=== PATIENT | male | born 1970 | race Hispanic/Latino ===

== ENCOUNTER 2022-12-08 11:37 | Inpatient (IN) | payer SELFPAY ==
[~2022-12-08] VITALS: Ht 177.8 cm; Wt 95.3 kg
[2022-12-08 12:54] LABS: BASOPHILS # (AUTO) 0.1 (0.0-0.1); BASOPHILS % 0.7 % (0.0-1.0); EOSINOPHILS # (AUTO) 0.2 (0.0-0.4); EOSINOPHILS % 1.6 % (0.0-6.0); HEMATOCRIT 27.7 % (38.2-49.6); HEMOGLOBIN 8.8 g/dL (14.0-18.0); LYMPHOCYTES # (AUTO) 1.1 (1.0-3.2); LYMPHOCYTES % 9.1 % (18.0-39.1); MEAN CORPUSCULAR HEMOGLOBIN 27.8 pg (28-32); MEAN CORPUSCULAR HGB CONC 31.8 g/dL (31-35); MEAN CORPUSCULAR VOLUME 87.7 fL (81-99); MONOCYTES # (AUTO) 0.8 (0.2-0.8); MONOCYTES % 6.4 % (4.4-11.3); NEUTROPHILS % 81.6 % (38.7-80.0); PLATELET COUNT 402 x10e3/uL (140-360); RED BLOOD COUNT 3.16 x10e6/uL (4.3-5.7)
[2022-12-08 13:18] LABS: ALBUMIN 2.2 g/dL (3.5-5.0); ALBUMIN/GLOBULIN RATIO 0.4 (0.8-2.0); ANION GAP 11.4 mmol/L (8-16); CALCIUM 8.4 mg/dL (8.4-10.2); CREATININE, SERUM 2.66 mg/dL (0.72-1.25); POTASSIUM 5.4 mmol/L (3.5-5.1)
[2022-12-08] MEDS ORDERED: CALCIUM GLUC 1 G/50 ML NACL 50 ML IV ONE (13:30)
[2022-12-08] MEDS ORDERED: ALBUTEROL SULF 0.083% NEB SOLN 3 ML NEB NEB STA ×2 (13:30→15:23)
[2022-12-08] MEDS ORDERED: INSULIN REGULAR, HUMAN 100 UNIT/1 ML IV ONE (13:30)
[2022-12-08] MEDS ORDERED: SODIUM CHLORIDE 0.9% 1000ML 1,000 ML IV ONE (13:30)
[2022-12-08] MEDS ORDERED: SODIUM BICARBONATE 8.4% INJ 50 ML SYR IV STA (13:30)
[2022-12-08] MEDS ORDERED: FUROSEMIDE INJ 10 MG/ML 2 ML VIAL IV ONE (13:45)
[2022-12-08] MEDS ORDERED: SODIUM CHLORIDE FLUSH 10 ML SYR INJ PRN (13:45)
[2022-12-08] MEDS ORDERED: DEXTROSE 50% SYRINGE 50 ML IV PRN (13:45)
[2022-12-08] MEDS ORDERED: ONDANSETRON HCL INJ 2MG/ML 2ML 2 MG/ML VIAL IV PRN ×2 (13:45→22:30)
[2022-12-08 13:50] LABS: CLARITY,URINE SL CLOUDY (CLEAR); COLOR,URINE YELLOW (YELLOW); KETONES,URINE NEGATIVE (NEGATIVE); LEUKOCYTE ESTERASE ,URINE NEGATIVE (NEGATIVE); NITRITE,URINE NEGATIVE (NEGATIVE); PROTEIN,URINE DIPSTICK >=300 (NEGATIVE); URINE UROBILINOGEN 0.2 mg/dL (0.2 - 1)
[2022-12-08] MEDS ORDERED: SOD POLYSTYRENE SULFONATE SUSP 15 GM/60 ML BTL PO ONE (14:00)
[2022-12-08 14:01] LABS: RBC,URINE 0-5 /HPF (0-5); WBC,URINE (MAN) 0-5 /HPF (0-5)
[2022-12-08 14:17] LABS: INR 1.02; PROTHROMBIN TIME 13.9 seconds (11.9-14.5)
[2022-12-08 14:30] VITALS: PULSE 95; RESP 16; O2SAT 98
[2022-12-08 15:32] VITALS: PULSE 84; RESP 16; O2SAT 98
[2022-12-08] MEDS: DEXTROSE 5%/0.45% SOD CHL 1,000 ML IV SCH (17:02)
[2022-12-08] MEDS: INSULIN REGULAR, HUMAN 100 UNIT/1 ML SQ SCH ×2 (17:04→21:08)
[2022-12-08 17:56] LABS: CREATININE,URINE RANDOM 33.82 mg/dL (63-166)
[2022-12-08 20:35] VITALS: PULSE 98; RESP 18; O2SAT 97
[2022-12-08] MEDS ORDERED: HYDRALAZINE HCL 20 MG/ML VIAL IV PRN ×2 (21:15→22:30)
[2022-12-08] MEDS ORDERED: HYDRALAZINE HCL 20 MG/ML VIAL ONE (21:18)
[2022-12-08] MEDS ORDERED: DIPHENHYDRAMINE HCL INJ 50 MG/ML VIAL IV PRN (22:30)
[2022-12-08] MEDS ORDERED: DOCUSATE SODIUM 100 MG CAP PO PRN (22:30)
[2022-12-08] MEDS ORDERED: HYDROCODONE/APAP 5MG-325MG TAB PO PRN (22:30)
[2022-12-08] MEDS ORDERED: METOPROLOL TARTRATE INJ 1 MG/ML VIAL IV PRN (22:30)
[2022-12-08] MEDS ORDERED: IPRATROPIUM BROMIDE 0.02% 2.5 ML NEB NEB PRN (22:30)
[2022-12-08] MEDS ORDERED: ALBUTEROL SULF 0.083% NEB SOLN 3 ML NEB NEB PRN (22:30)
[2022-12-08 22:49] VITALS: TEMP 98.2
[2022-12-09] VITALS (11 sets, daily range): BP systolic 112–161; BP diastolic 65–99; PULSE 87–103; RESP 17–20; TEMP 97–98.2; O2SAT 97–100
[2022-12-09 05:53] LABS: BASOPHILS # (AUTO) 0.1 (0.0-0.1); EOSINOPHILS # (AUTO) 0.3 (0.0-0.4); EOSINOPHILS % 2.6 % (0.0-6.0); HEMATOCRIT 25.9 % (38.2-49.6); HEMOGLOBIN 7.9 g/dL (14.0-18.0); LYMPHOCYTES # (AUTO) 1.5 (1.0-3.2); LYMPHOCYTES % 15.3 % (18.0-39.1); MEAN CORPUSCULAR HEMOGLOBIN 27.6 pg (28-32); MEAN CORPUSCULAR HGB CONC 30.5 g/dL (31-35); MEAN CORPUSCULAR VOLUME 90.6 fL (81-99); MONOCYTES # (AUTO) 0.8 (0.2-0.8); MONOCYTES % 8.3 % (4.4-11.3); NEUTROPHILS # (AUTO) 7.1 (2.1-6.9); NEUTROPHILS % 72.3 % (38.7-80.0); PLATELET COUNT 371 x10e3/uL (140-360); RED BLOOD COUNT 2.86 x10e6/uL (4.3-5.7)
[2022-12-09 06:16] LABS: ALBUMIN 1.8 g/dL (3.5-5.0); ALBUMIN/GLOBULIN RATIO 0.4 (0.8-2.0); ANION GAP 12.9 mmol/L (8-16); CALCIUM 8.1 mg/dL (8.4-10.2); CREATININE, SERUM 2.29 mg/dL (0.72-1.25); POTASSIUM 3.9 mmol/L (3.5-5.1)
[2022-12-09] MEDS: DEXTROSE 5%/0.45% SOD CHL 1,000 ML IV SCH ×2 (06:30→17:12)
[2022-12-09 06:49] LABS: MAGNESIUM 1.9 MG/DL (1.3-2.1); PHOSPHORUS 4.6 MG/DL (2.3-4.7)
[2022-12-09] MEDS: INSULIN REGULAR, HUMAN 100 UNIT/1 ML SQ SCH ×4 (07:30→19:42)
[2022-12-09] MEDS: HYDROCODONE/APAP 5MG-325MG TAB PO PRN (12:40)
[2022-12-09] MEDS ORDERED: NAPROXEN 250 MG TAB PO SCH (17:00)
[2022-12-10] VITALS (10 sets, daily range): BP systolic 126–184; BP diastolic 76–98; PULSE 81–101; RESP 18–20; TEMP 97.9–98.1; O2SAT 96–100
[2022-12-10] MEDS: DEXTROSE 5%/0.45% SOD CHL 1,000 ML IV SCH (03:42)
[2022-12-10 05:55] LABS: BASOPHILS # (AUTO) 0.1 (0.0-0.1); BASOPHILS % 0.8 % (0.0-1.0); EOSINOPHILS # (AUTO) 0.3 (0.0-0.4); EOSINOPHILS % 2.8 % (0.0-6.0); HEMATOCRIT 27.5 % (38.2-49.6); HEMOGLOBIN 8.2 g/dL (14.0-18.0); LYMPHOCYTES # (AUTO) 1.6 (1.0-3.2); LYMPHOCYTES % 13.5 % (18.0-39.1); MEAN CORPUSCULAR HEMOGLOBIN 27.2 pg (28-32); MEAN CORPUSCULAR HGB CONC 29.8 g/dL (31-35); MEAN CORPUSCULAR VOLUME 91.1 fL (81-99); MONOCYTES % 8.4 % (4.4-11.3); NEUTROPHILS # (AUTO) 8.8 (2.1-6.9); PLATELET COUNT 391 x10e3/uL (140-360); RED BLOOD COUNT 3.02 x10e6/uL (4.3-5.7)
[2022-12-10 06:20] LABS: ALBUMIN 1.9 g/dL (3.5-5.0); ALBUMIN/GLOBULIN RATIO 0.4 (0.8-2.0); ANION GAP 11.3 mmol/L (8-16); CALCIUM 8.5 mg/dL (8.4-10.2); CREATININE, SERUM 1.95 mg/dL (0.72-1.25); POTASSIUM 4.3 mmol/L (3.5-5.1)
[2022-12-10] MEDS: INSULIN REGULAR, HUMAN 100 UNIT/1 ML SQ SCH ×4 (08:00→21:02)
[2022-12-10] MEDS ORDERED: ONDANSETRON HCL 4 MG ORAL DISINTEGRATING TAB PO PRN (13:30)
[2022-12-10] MEDS: HYDROCODONE/APAP 5MG-325MG TAB PO PRN ×2 (15:55→21:22)
[2022-12-10] MEDS: ZOLPIDEM TARTRATE 5 MG TAB PO PRN (21:22)
[2022-12-11] VITALS (10 sets, daily range): BP systolic 108–176; BP diastolic 69–92; PULSE 83–100; RESP 16–21; TEMP 97.9–98.6; O2SAT 96–98
[2022-12-11 05:36] LABS: BASOPHILS # (AUTO) 0.1 (0.0-0.1); BASOPHILS % 1.1 % (0.0-1.0); EOSINOPHILS # (AUTO) 0.3 (0.0-0.4); HEMATOCRIT 29.7 % (38.2-49.6); HEMOGLOBIN 8.8 g/dL (14.0-18.0); LYMPHOCYTES # (AUTO) 1.6 (1.0-3.2); LYMPHOCYTES % 19.7 % (18.0-39.1); MEAN CORPUSCULAR HEMOGLOBIN 27.2 pg (28-32); MEAN CORPUSCULAR HGB CONC 29.6 g/dL (31-35); MONOCYTES # (AUTO) 0.9 (0.2-0.8); MONOCYTES % 10.3 % (4.4-11.3); NEUTROPHILS # (AUTO) 5.4 (2.1-6.9); NEUTROPHILS % 65.3 % (38.7-80.0); PLATELET COUNT 356 x10e3/uL (140-360); RED BLOOD COUNT 3.23 x10e6/uL (4.3-5.7); RED CELL DISTRIBUTION WIDTH 11.9 % (11.7-14.4)
[2022-12-11 05:59] LABS: ANION GAP 13.3 mmol/L (8-16); CALCIUM 8.5 mg/dL (8.4-10.2); CREATININE, SERUM 1.97 mg/dL (0.72-1.25); POTASSIUM 4.3 mmol/L (3.5-5.1)
[2022-12-11] MEDS: INSULIN REGULAR, HUMAN 100 UNIT/1 ML SQ SCH ×4 (08:33→20:41)
[2022-12-11] MEDS: FUROSEMIDE INJ 10 MG/ML 4 ML VIAL IV SCH (09:31)
[2022-12-11] MEDS: CARVEDILOL 12.5 MG TAB PO SCH ×2 (09:31→18:21)
[2022-12-11] MEDS: AMLODIPINE BESYLATE 10 MG TAB PO SCH (09:32)
[2022-12-11] MEDS: ZOLPIDEM TARTRATE 5 MG TAB PO PRN (20:32)
[2022-12-11] MEDS: HYDROCODONE/APAP 5MG-325MG TAB PO PRN (20:32)
[2022-12-12] VITALS (9 sets, daily range): BP systolic 101–154; BP diastolic 58–93; PULSE 79–99; RESP 16–21; TEMP 97.8–98.3; O2SAT 95–100
[2022-12-12 05:44] LABS: BASOPHILS # (AUTO) 0.1 (0.0-0.1); BASOPHILS % 0.9 % (0.0-1.0); EOSINOPHILS # (AUTO) 0.2 (0.0-0.4); EOSINOPHILS % 2.4 % (0.0-6.0); HEMATOCRIT 26.4 % (38.2-49.6); LYMPHOCYTES # (AUTO) 1.6 (1.0-3.2); LYMPHOCYTES % 17.2 % (18.0-39.1); MEAN CORPUSCULAR HEMOGLOBIN 27.6 pg (28-32); MEAN CORPUSCULAR HGB CONC 30.3 g/dL (31-35); MONOCYTES # (AUTO) 0.9 (0.2-0.8); MONOCYTES % 9.1 % (4.4-11.3); NEUTROPHILS # (AUTO) 6.5 (2.1-6.9); NEUTROPHILS % 69.9 % (38.7-80.0); PLATELET COUNT 380 x10e3/uL (140-360); RED CELL DISTRIBUTION WIDTH 11.9 % (11.7-14.4)
[2022-12-12 06:17] LABS: ALBUMIN 1.8 g/dL (3.5-5.0); ALBUMIN/GLOBULIN RATIO 0.4 (0.8-2.0); ANION GAP 15.5 mmol/L (8-16); CALCIUM 8.2 mg/dL (8.4-10.2); CHOL/HDL RATIO 6.3 (3.9-4.7); CREATININE, SERUM 2.27 mg/dL (0.72-1.25); MAGNESIUM 1.8 MG/DL (1.3-2.1); POTASSIUM 4.5 mmol/L (3.5-5.1)
[2022-12-12 06:28] LABS: THYROID STIMULATING HORMONE 4.356 uIU/mL (0.350-4.940)
[2022-12-12] MEDS: INSULIN REGULAR, HUMAN 100 UNIT/1 ML SQ SCH ×4 (09:51→20:51)
[2022-12-12] MEDS: AMLODIPINE BESYLATE 10 MG TAB PO SCH (09:58)
[2022-12-12] MEDS: CARVEDILOL 12.5 MG TAB PO SCH ×2 (09:58→16:57)
[2022-12-12] MEDS: FUROSEMIDE INJ 10 MG/ML 4 ML VIAL IV SCH (09:59)
[2022-12-12] MEDS: ATORVASTATIN 40 MG TAB PO SCH ×2 (09:59→20:46)
[2022-12-12] MEDS: ACETAMINOPHEN 325 MG TAB PO PRN (09:59)
[2022-12-12] MEDS ORDERED: SODIUM CHLORIDE 0.9% 1000ML 1,000 ML IV ONE (12:00)
[2022-12-12] MEDS: AZITHROMYCIN 250 MG TAB PO SCH (20:46)
[2022-12-13] VITALS (9 sets, daily range): BP systolic 123–147; BP diastolic 72–83; PULSE 74–96; RESP 16–22; TEMP 97.6–98.7; O2SAT 96–100
[2022-12-13] MEDS: ACETAMINOPHEN 325 MG TAB PO PRN (01:48)
[2022-12-13] MEDS: INSULIN REGULAR, HUMAN 100 UNIT/1 ML SQ SCH ×4 (08:53→21:37)
[2022-12-13] MEDS: FUROSEMIDE INJ 10 MG/ML 4 ML VIAL IV SCH (08:54)
[2022-12-13] MEDS: AMLODIPINE BESYLATE 10 MG TAB PO SCH (08:55)
[2022-12-13] MEDS: CARVEDILOL 12.5 MG TAB PO SCH ×2 (08:55→16:41)
[2022-12-13] MEDS: DIPHENHYDRAMINE HCL INJ 50 MG/ML VIAL IV PRN ×2 (15:41→21:31)
[2022-12-13] MEDS: NYSTATIN 15 GM POWDER UD BTL TOP SCH (16:38)
[2022-12-13] MEDS: ATORVASTATIN 40 MG TAB PO SCH (21:31)
[2022-12-13] MEDS: AZITHROMYCIN 250 MG TAB PO SCH (21:32)
[2022-12-13] MEDS: HYDROCODONE/APAP 5MG-325MG TAB PO PRN (22:03)
[2022-12-14] VITALS (9 sets, daily range): BP systolic 112–143; BP diastolic 61–96; PULSE 73–88; RESP 16–20; TEMP 97.9–98.7; O2SAT 95–100
[2022-12-14 08:24] LABS: BASOPHILS # (AUTO) 0.1 (0.0-0.1); BASOPHILS % 1.2 % (0.0-1.0); EOSINOPHILS # (AUTO) 0.2 (0.0-0.4); EOSINOPHILS % 3.2 % (0.0-6.0); HEMATOCRIT 26.9 % (38.2-49.6); HEMOGLOBIN 8.3 g/dL (14.0-18.0); LYMPHOCYTES # (AUTO) 1.7 (1.0-3.2); LYMPHOCYTES % 24.3 % (18.0-39.1); MEAN CORPUSCULAR HEMOGLOBIN 27.3 pg (28-32); MEAN CORPUSCULAR HGB CONC 30.9 g/dL (31-35); MEAN CORPUSCULAR VOLUME 88.5 fL (81-99); MONOCYTES # (AUTO) 0.6 (0.2-0.8); MONOCYTES % 8.5 % (4.4-11.3); NEUTROPHILS # (AUTO) 4.2 (2.1-6.9); NEUTROPHILS % 62.1 % (38.7-80.0); PLATELET COUNT 429 x10e3/uL (140-360); RED BLOOD COUNT 3.04 x10e6/uL (4.3-5.7); RED CELL DISTRIBUTION WIDTH 12.3 % (11.7-14.4)
[2022-12-14 08:42] LABS: ANION GAP 13.6 mmol/L (8-16); CALCIUM 8.8 mg/dL (8.4-10.2); CREATININE, SERUM 2.05 mg/dL (0.72-1.25); POTASSIUM 4.6 mmol/L (3.5-5.1)
[2022-12-14] MEDS: FUROSEMIDE INJ 10 MG/ML 4 ML VIAL IV SCH (09:03)
[2022-12-14] MEDS: AMLODIPINE BESYLATE 10 MG TAB PO SCH (09:04)
[2022-12-14] MEDS: CARVEDILOL 12.5 MG TAB PO SCH ×2 (09:04→16:29)
[2022-12-14] MEDS: INSULIN REGULAR, HUMAN 100 UNIT/1 ML SQ SCH ×4 (09:09→20:47)
[2022-12-14] MEDS: NYSTATIN 15 GM POWDER UD BTL TOP SCH ×2 (09:50→16:29)
[2022-12-14] MEDS: Clindamycin INJ 300 MG/50 ML 50 ML IV SCH ×2 (16:29→21:13)
[2022-12-14] MEDS: ATORVASTATIN 40 MG TAB PO SCH (20:43)
[2022-12-14] MEDS: AZITHROMYCIN 250 MG TAB PO SCH (20:43)
[2022-12-15] VITALS (10 sets, daily range): BP systolic 105–145; BP diastolic 52–97; PULSE 70–90; RESP 16–18; TEMP 97.9–98.4; O2SAT 95–98
[2022-12-15] MEDS: Clindamycin INJ 300 MG/50 ML 50 ML IV SCH (06:00)
[2022-12-15] MEDS: FUROSEMIDE INJ 10 MG/ML 4 ML VIAL IV SCH (08:57)
[2022-12-15] MEDS: AMLODIPINE BESYLATE 10 MG TAB PO SCH (08:58)
[2022-12-15] MEDS: CARVEDILOL 12.5 MG TAB PO SCH ×2 (08:58→17:18)
[2022-12-15] MEDS: INSULIN REGULAR, HUMAN 100 UNIT/1 ML SQ SCH ×4 (08:59→21:26)
[2022-12-15] MEDS: NYSTATIN 15 GM POWDER UD BTL TOP SCH ×2 (09:00→17:19)
[2022-12-15] MEDS ORDERED: NYAMYC15 GM TOP (15:22)
[2022-12-15] MEDS: ATORVASTATIN 40 MG TAB PO SCH (21:14)
[2022-12-15] MEDS: AZITHROMYCIN 250 MG TAB PO SCH (21:14)
[2022-12-15] MEDS: CLINDAMYCIN HCL 150 MG CAP PO SCH (21:14)
[2022-12-15] MEDS: HYDROCODONE/APAP 5MG-325MG TAB PO PRN (21:15)
[2022-12-16 00:05] VITALS: BP 111/68; PULSE 75; RESP 20; TEMP 97.6; O2SAT 95
[2022-12-16 04:39] VITALS: BP 108/69; PULSE 69; RESP 18; TEMP 97.9; O2SAT 97
[2022-12-16] MEDS: CLINDAMYCIN HCL 150 MG CAP PO SCH (06:09)
[2022-12-16 06:13] VITALS: PULSE 85; RESP 20; O2SAT 98
[2022-12-16] MEDS: DIPHENHYDRAMINE HCL INJ 50 MG/ML VIAL IV PRN (06:14)
[2022-12-16 08:00] VITALS: BP 133/80; PULSE 71; RESP 19; TEMP 97.8; O2SAT 96
[2022-12-16 08:16] VITALS: BP 133/80; PULSE 71; RESP 19; TEMP 97.8; O2SAT 96
[2022-12-16] MEDS ORDERED: FUROSEMIDE 40 MG TAB PO SCH (09:00)
[2022-12-16] MEDS: INSULIN REGULAR, HUMAN 100 UNIT/1 ML SQ SCH ×2 (09:32→12:08)
[2022-12-16] MEDS: AMLODIPINE BESYLATE 10 MG TAB PO SCH (09:33)
[2022-12-16] MEDS: NYSTATIN 15 GM POWDER UD BTL TOP SCH (09:36)
[2022-12-16] MEDS: CARVEDILOL 12.5 MG TAB PO SCH (09:36)
[2022-12-16] MEDS ORDERED: NORVASC10 MG PO ×2 (10:53→11:13)
[2022-12-16] MEDS ORDERED: LANTUS 3ML100 UNITS/ SQ ×2 (10:53→11:13)
[2022-12-16] MEDS ORDERED: LIPITOR20 MG PO ×2 (10:55→11:14)
[2022-12-16] MEDS ORDERED: CLEOCIN HCL300 MG PO (10:56)
[2022-12-16] MEDS ORDERED: COREG6.25 MG PO ×2 (10:56→11:15)
[2022-12-16] MEDS ORDERED: LASIX40 MG PO ×2 (10:56→11:15)
[2022-12-16] MEDS ORDERED: GLIPIZIDE5 MG PO ×2 (10:59→11:13)
[2022-12-16] MEDS ORDERED: CLINDAMYCIN HC300 MG PO (11:15)
[2022-12-16 11:26] VITALS: BP 138/79; PULSE 77; RESP 18; TEMP 98.5; O2SAT 98
== END 2022-12-16 12:30 | disposition home or self-care (01) | DRG 194 ==
LOC: ER 12:17 → ERHOLD 13:43 → MED/SURG3 21:51
PROVIDERS: ADMIT Internal Medicine; ATTEND Internal Medicine
DX: J18.9 Pneumonia, unspecified organism (principal); E87.1 Hypo-osmolality and hyponatremia; N17.9 Acute kidney failure, unspecified; L03.115 Cellulitis of right lower limb; L02.415 Cutaneous abscess of right lower limb; I13.0 Hypertensive heart and chronic kidney disease with heart failure and stage 1 through stage 4 chronic kidney disease, or unspecified chronic kidney disease; I50.32 Chronic diastolic (congestive) heart failure; R60.1 Generalized edema; N43.2 Other hydrocele; F10.11 Alcohol abuse, in remission; N47.1 Phimosis; E88.09 Other disorders of plasma-protein metabolism, not elsewhere classified; E87.5 Hyperkalemia; L73.8 Other specified follicular disorders; E11.65 Type 2 diabetes mellitus with hyperglycemia; E11.21 Type 2 diabetes mellitus with diabetic nephropathy; E11.22 Type 2 diabetes mellitus with diabetic chronic kidney disease; N18.2 Chronic kidney disease, stage 2 (mild); R09.02 Hypoxemia; D63.1 Anemia in chronic kidney disease; N50.89 Other specified disorders of the male genital organs; E66.9 Obesity, unspecified; Z20.822 Contact with and (suspected) exposure to COVID-19; Z59.00 Homelessness unspecified; Z59.6 Low income; Z83.3 Family history of diabetes mellitus; Z91.148 Patient's other noncompliance with medication regimen for other reason; Z68.30 Body mass index [BMI] 30.0-30.9, adult
CPT/HCPCS: 36415; 71045; 71250; 76770; 76870; 80048; 80053; 80061; 81001; 82570; 82948; 83036; 83735; 83880; 84100; 84156; 84443; 84484; 84550; 85025; 85610; 87071; 87186; 87205; 93005; 93306; 93976; 94640; 94799; 96361; 96372; 99252; 99285; J0696; J1200; J1940; J7030; J7050